=== PATIENT | male | born 1950 | race Caucasian/White ===

== ENCOUNTER → 2021-06-24 | Outpatient (CLI) | payer MEDICARE, BC | LOC: RAD 15:49 | DX: M61.471 Other calcification of muscle, right ankle and foot (principal); L03.115 Cellulitis of right lower limb; E11.621 Type 2 diabetes mellitus with foot ulcer ==

== ENCOUNTER → 2021-09-04 | Outpatient (CLI) | payer MEDICARE, BC | LOC: RAD 10:00 → VAS 10:02 | DX: E11.621 Type 2 diabetes mellitus with foot ulcer (principal); E11.42 Type 2 diabetes mellitus with diabetic polyneuropathy ==

== ENCOUNTER 2023-01-04 12:32 | Inpatient (IN) | payer MEDICARE, BC ==
[~2023-01-04] VITALS: Ht 188 cm; Wt 111.0 kg
[2023-01-04 13:57] VITALS: BP 152/105
[2023-01-04] MEDS ORDERED: NORVASC 5MG5 MG/TAB PO (14:09)
[2023-01-04] MEDS ORDERED: BENZONATATE100 M2 PO (14:10)
[2023-01-04] MEDS ORDERED: CLONIDINE HYDR0.1 MG PO (14:11)
[2023-01-04] MEDS ORDERED: HCTZ 25MG25 MG PO (14:12)
[2023-01-04] MEDS ORDERED: ERTAPENEM1 GM IJ (14:13)
[2023-01-04] MEDS ORDERED: CARVEDILOL3.125 MG PO (14:13)
[2023-01-04] MEDS ORDERED: CARDURA4 M1 PO (14:13)
[2023-01-04] MEDS ORDERED: ZESTRIL40 M1 PO (14:14)
[2023-01-04] MEDS ORDERED: GLUCOPHAGE PO (14:14)
[2023-01-04] MEDS ORDERED: TRULICITY1.5 MG/0.5 SC (14:15)
[2023-01-04] MEDS ORDERED: COREG 25MG25 MG/TAB PO (14:46)
[2023-01-04] MEDS ORDERED: ATIVAN0.5 MG PO (14:49)
[2023-01-04 16:33] LABS: BASO # 0.02 K/mm3 (0.02-0.10); EOS # 0.12 K/mm3 (0.04-0.40); EOS % 1.7 % (0.0-4.0); HEMATOCRIT 40.2 % (42.0-52.0); HEMOGLOBIN 13.6 g/dL (13.5-18.0); MEAN CELL VOLUME 84 fl (78-100); MEAN CORPUSCULAR HEMOGLOBIN 28 pg (27-31); MEAN CORPUSCULAR HGB CONC 34 g/dL (33-37); MONO # 0.66 K/mm3 (0.20-0.80); NEU # 5.06 K/mm3 (1.40-6.50); PLATELET COUNT 225 K/mm3 (130-400); RED BLOOD COUNT 4.79 M/mm3 (4.20-5.60); RED CELL DISTRIBUTION WIDTH 14.4 % (11.5-14.5)
[2023-01-04 16:39] LABS: ALBUMIN 3.7 g/dL (3.4-4.8); POTASSIUM 4.2 mmol/L (3.5-5.1)
[2023-01-04 16:40] LABS: CALCIUM 9.7 mg/dL (8.3-10.5)
[2023-01-04 16:41] LABS: TOTAL PROTEIN 7.3 g/dL (6.2-8.1)
[2023-01-04 16:43] LABS: TOTAL BILIRUBIN 1.2 mg/dL (0.2-1.2)
[2023-01-04 18:20] VITALS: BP 152/105
[2023-01-05 05:45] VITALS: BP 150/89
[2023-01-05 07:00] LABS: URINE APPEARANCE HAZY; URINE BILIRUBIN NEGATIVE (NEGATIVE); URINE BLOOD NEGATIVE (NEGATIVE); URINE COLOR YELLOW; URINE GLUCOSE NEGATIVE (NEGATIVE); URINE KETONE NEGATIVE (NEGATIVE); URINE LEUKOCYTE ESTERASE NEGATIVE (NEGATIVE); URINE NITRATE NEGATIVE (NEGATIVE); URINE PROTEIN(semi-quant) NEGATIVE (NEGATIVE); URINE UROBILINOGEN NORMAL (NORMAL); URINE WBC 0-1 /hpf (0-3)
[2023-01-05 07:01] LABS: URINE MUCUS PRESENT (NOT PRESENT)
[2023-01-05 17:44] VITALS: BP 151/95
[2023-01-06 05:26] VITALS: BP 137/75
[2023-01-06 18:25] VITALS: BP 148/93
[2023-01-07 05:38] VITALS: BP 161/93
[2023-01-07 18:05] VITALS: BP 164/86
[2023-01-08 06:08] VITALS: BP 145/84
[2023-01-08 17:53] VITALS: BP 150/96
[2023-01-09 06:18] VITALS: BP 152/86
[2023-01-09 18:15] VITALS: BP 160/98
[2023-01-10 06:08] VITALS: BP 162/86
[2023-01-10 18:10] VITALS: BP 152/91
[2023-01-11 05:42] VITALS: BP 147/93
[2023-01-11 07:27] LABS: BASO # 0.01 K/mm3 (0.02-0.10); EOS # 0.11 K/mm3 (0.04-0.40); EOS % 1.6 % (0.0-4.0); HEMATOCRIT 39.5 % (42.0-52.0); HEMOGLOBIN 13.3 g/dL (13.5-18.0); LYMPH# 1.17 K/mm3 (1.50-4.00); MEAN CELL VOLUME 85 fl (78-100); MEAN CORPUSCULAR HEMOGLOBIN 29 pg (27-31); MEAN CORPUSCULAR HGB CONC 34 g/dL (33-37); MEAN PLATELET VOLUME 9.2 fl (7.4-10.4); MONO # 0.59 K/mm3 (0.20-0.80); NEU # 5.15 K/mm3 (1.40-6.50); PLATELET COUNT 251 K/mm3 (130-400); RED BLOOD COUNT 4.67 M/mm3 (4.20-5.60); RED CELL DISTRIBUTION WIDTH 14.3 % (11.5-14.5)
[2023-01-11 07:34] LABS: ALBUMIN 3.7 g/dL (3.4-4.8)
[2023-01-11 07:35] LABS: CALCIUM 9.7 mg/dL (8.3-10.5)
[2023-01-11 07:37] LABS: TOTAL PROTEIN 7.1 g/dL (6.2-8.1)
[2023-01-11 17:14] VITALS: BP 144/82
[2023-01-12 05:49] VITALS: BP 154/85
[2023-01-12 18:23] VITALS: BP 153/86
[2023-01-13 05:45] VITALS: BP 147/83
[2023-01-13 17:37] VITALS: BP 147/90
[2023-01-14 05:38] VITALS: BP 150/89
[2023-01-14 17:09] VITALS: BP 133/91
[2023-01-15 06:03] VITALS: BP 121/69
[2023-01-16] MEDS ORDERED: QUINAPRIL HCL40 MG PO (09:30)
== END 2023-01-15 10:08 | disposition home or self-care (01) | DRG 638 ==
LOC: MED/SURG 12:32
PROVIDERS: Family Medicine; ADMIT Nurse Practitioner
DX: E11.621 Type 2 diabetes mellitus with foot ulcer (principal); L02.612 Cutaneous abscess of left foot; L97.529 Non-pressure chronic ulcer of other part of left foot with unspecified severity; I10 Essential (primary) hypertension; R53.81 Other malaise; B97.4 Respiratory syncytial virus as the cause of diseases classified elsewhere; E11.42 Type 2 diabetes mellitus with diabetic polyneuropathy; Z87.891 Personal history of nicotine dependence; Z79.899 Other long term (current) drug therapy; Z79.84 Long term (current) use of oral hypoglycemic drugs
CPT/HCPCS: J1335; J1650

== ENCOUNTER → 2024-11-04 | Outpatient (CLI) | payer MEDICARE, BC ==
[~2024-11-04] MED LIST: ATIVAN0.5 MG PO; BENZONATATE100 M2 PO; CARDURA4 M1 PO; CARVEDILOL3.125 MG PO; CLONIDINE HYDR0.1 MG PO; COREG 25MG25 MG/TAB PO; ERTAPENEM1 GM IJ; GLUCOPHAGE PO; HCTZ 25MG25 MG PO; NORVASC 5MG5 MG/TAB PO; QUINAPRIL HCL40 MG PO; TRULICITY1.5 MG/0.5 SC; ZESTRIL40 M1 PO
[2024-11-04 12:26] LABS: BASO # 0.03 K/mm3 (0.02-0.10); EOS # 0.12 K/mm3 (0.04-0.40); EOS % 1.7 % (0.0-4.0); HEMATOCRIT 53.5 % (42.0-52.0); HEMOGLOBIN 18.6 g/dL (13.5-18.0); LYMPH# 1.36 K/mm3 (1.50-4.00); MEAN CELL VOLUME 87 fl (78-100); MEAN CORPUSCULAR HEMOGLOBIN 30 pg (27-31); MEAN CORPUSCULAR HGB CONC 35 g/dL (33-37); MEAN PLATELET VOLUME 8.8 fl (7.4-10.4); MONO # 0.54 K/mm3 (0.20-0.80); NEU # 5.11 K/mm3 (1.40-6.50); PLATELET COUNT 158 K/mm3 (130-400); RED BLOOD COUNT 6.13 M/mm3 (4.20-5.60); RED CELL DISTRIBUTION WIDTH 13.9 % (11.5-14.5); WHITE BLOOD COUNT 7.2 K/mm3 (4.8-10.8)
[2024-11-04 12:33] LABS: ALBUMIN 4.5 g/dL (3.4-4.8)
[2024-11-04 12:34] LABS: CALCIUM 9.9 mg/dL (8.3-10.5)
[2024-11-04 12:35] LABS: TOTAL PROTEIN 8.3 g/dL (6.2-8.1)
[2024-11-04 12:37] LABS: TOTAL BILIRUBIN 1.4 mg/dL (0.2-1.2)
== END ==
LOC: LAB 12:11
PROVIDERS: Dermatology
DX: L29.89 Other pruritus (principal)